=== PATIENT | female | born 1985 | race Hispanic/Latino ===

== ENCOUNTER 2021-04-30 07:33 | Emergency (ER) | payer SELFPAY | END 2021-04-30 08:55 | disposition home or self-care (01) | LOC: MADERS 07:33 | DX: J02.0 Streptococcal pharyngitis (principal) | CPT/HCPCS: 99283 ==

== ENCOUNTER 2021-08-19 17:18 | Emergency (ER) | payer SELFPAY ==
[2021-08-19 17:57] LABS: Bilirubin Negative (Negative); Blood, Urine Trace (Negative); Clarity Hazy (Clear); Glucose, Urine (Dipstick) Negative (Negative); Ketone, Urine Negative (Negative); Leukocyte Moderate (Negative); Nitrite Negative (Negative); Protein, Urine (Dipstick) Negative (Neg-Trace); Urobilinogen 0.2 mg/dL (Less than 2)
[2021-08-19 17:58] LABS: Pregnancy Test - Urine (BHCG) Negative (Negative); Pregu Control Background? CLEAR/WHITE (CLR/WHITE); Pregu Control Bar Appear? YES (CONTROL BAR)
[2021-08-19 18:00] LABS: Bacteria/HPF Rare-Few HPF (None Seen); RBC/HPF 0-3 HPF (0-3)
[2021-08-19] MEDS ORDERED: Fluconazole 100 MG TAB ONE (18:17)
== END 2021-08-19 18:26 | disposition home or self-care (01) ==
LOC: MADERS 17:18
DX: B35.8 Other dermatophytoses (principal); R30.0 Dysuria
CPT/HCPCS: 81003; 81015; 81025; 99283

== ENCOUNTER 2025-03-19 15:47 | Emergency (ER) | payer SELFPAY | END 2025-03-19 17:16 | disposition home or self-care (01) | LOC: MADERS 15:47 | DX: J06.9 Acute upper respiratory infection, unspecified (principal) | CPT/HCPCS: 71045; 87428; 93005 ==